=== PATIENT | female | born 1995 | race Caucasian/White ===

== ENCOUNTER 2022-12-25 20:55 | Inpatient (IN) | payer OTHER ==
[~2022-12-25 20:55] MED LIST: Bupivacaine HCl 0.5%/Epinephrine 1:200,000/PF 30 ml Vial ONE
[2022-12-25 21:16] VITALS: BMI 28.9
[2022-12-25] MEDS ORDERED: hydrALAZINE 20 MG/ML VIAL SLOW IVP PRN (21:43)
[2022-12-25] MEDS ORDERED: Acetaminophen 325 MG TAB PO PRN (21:47)
[2022-12-25 22:18] LABS: Creatinine, Urine Less than 20.00 mg/dL (47-110); Protein, Urine Random Quant Less than 10 mg/dL (1-14)
[2022-12-25 22:23] LABS: #Eosinphils 0.2 10x3/uL (0.0-0.5); #Monocytes 0.6 10x3/uL (0.0-1.1); #Neutrophils 6.3 10x3/uL (1.5-8.4); %Basophils 0.4 % (0.0-2.0); %Eosinophils 2.6 % (0.0-6.0); %Lymphocytes 21.4 % (18.0-47.0); %Monocytes 6.8 % (0.0-10.0); %Neutrophils 68.4 % (40.0-75.0); Hemoglobin 12.8 g/dL (12.0-15.5); Mean Corpuscular Hemoglobin 33.5 pg (27.0-33.0); Mean Corpuscular Volume 93.2 fl (81.6-98.3); Mean Platelet Volume 12.5 fl (7.4-10.4); Platelet Count 137 10x3/uL (150-450); RBC Distribution Width 12.6 % (11.5-14.5); Red Blood Cell (RBC) Count 3.82 10x6/uL (3.90-5.03); White Blood Cell (WBC) Count 9.3 10x3/uL (3.5-10.5)
[2022-12-25 22:35] LABS: ALT (SGPT) 12 U/L (8-55); AST (SGOT) 24 U/L (5-34); Albumin 3.8 g/dL (3.5-5.0); Alkaline Phosphatase 178 U/L (40-110); Anion Gap 14 mmol/L (10-20); BUN (Urea Nitrogen) 13 mg/dL (7.0-18.7); Bilirubin, Total 0.3 mg/dL (0.2-1.2); Calc. Creatinine Clearance 141 mL/min (70-130); Calcium 9.1 mg/dL (7.8-10.44); Carbon Dioxide 21 mmol/L (22-29); Chloride 108 mmol/L (98-107); Estimated GFR 123; Globulin 2.9 g/dL (2.4-3.5); Glucose 81 mg/dL (70-105); Protein, Total 6.7 g/dL (6.0-8.3); Sodium 139 mmol/L (136-145)
[2022-12-25] MEDS ORDERED: Lidocaine 1% (PF) 30 ML VIAL SC PRN (22:45)
[2022-12-25] MEDS ORDERED: NS w/ Oxytocin 30 units 500 ML IV SCH ×2 (22:45→23:00)
[2022-12-25] MEDS ORDERED: Promethazine HCl 25 MG/ML VIAL IM PRN (22:45)
[2022-12-25] MEDS ORDERED: Ondansetron PF 4 MG/2 ML Vial IVP PRN (22:45)
[2022-12-25 23:49] LABS: Syphilis Antibody Nonreactive (Nonreactive)
[2022-12-25 23:50] LABS: HBSAg Index 0.13 S/CO (0-0.99); Hep B Surf Ag - L&D Non-Reactive S/CO (NonReactive)
[2022-12-26] MEDS: Misoprostol 100 MCG TAB VAG SCH ×2 (00:57→08:27)
[2022-12-26] MEDS ORDERED: fentaNYL 50 mcg/mL 1 mL Vial SLOW IVP SCH (15:00)
[2022-12-26] MEDS ORDERED: fentaNYL 50 mcg/mL 1 mL Vial ONE ×2 (15:10→15:32)
[2022-12-26] MEDS ORDERED: Fentanyl 2 mcg/Bup 0.1% Cadd 100 ML ONE ×2 (15:11→23:29)
[2022-12-26] MEDS ORDERED: Magnesium Sulfate 20 gm/500 ml 20 GM/500 ML BAG ONE (15:43)
[2022-12-26] MEDS ORDERED: Acetaminophen 325 MG TAB PO PRN ×2 (16:23→17:10)
[2022-12-26] MEDS ORDERED: Naloxone HCl 0.4 mg/ml Vial IVP PRN ×4 (16:23→17:10)
[2022-12-26] MEDS ORDERED: Promethazine HCl 25 MG/ML VIAL IM PRN ×2 (16:23→17:10)
[2022-12-26] MEDS ORDERED: Ondansetron PF 4 MG/2 ML Vial IVP PRN ×2 (16:23→17:10)
[2022-12-26] MEDS ORDERED: Lactated Ringer's 500 ML IV PRN ×2 (16:23→17:10)
[2022-12-26] MEDS ORDERED: diphenhydrAMINE 50 MG/ML VIAL IVP PRN ×2 (16:23→17:10)
[2022-12-26] MEDS ORDERED: ePHEDrine Sulfate 50 MG/10 ML VIAL SLOW IVP PRN ×2 (16:23→17:10)
[2022-12-26] MEDS ORDERED: Moisturizing Cream (Eucerin) 113 GM JAR TOP PRN ×2 (16:23→17:10)
[2022-12-26] MEDS ORDERED: Communication Order-Pharmacy FS SCH ×2 (16:30→17:15)
[2022-12-26] MEDS ORDERED: hydrALAZINE 20 MG/ML VIAL SLOW IVP PRN (16:46)
[2022-12-26] MEDS ORDERED: Labetalol HCl 100 MG/20 ML VIAL SLOW IVP PRN ×2 (16:46)
[2022-12-26] MEDS ORDERED: Calcium Gluc 4.6 MEQ/10 ML (100 MG/ML) SLOW IVP PRN (16:46)
[2022-12-26] MEDS ORDERED: Magnesium Sulfate 20 gm/500 ml 20 GM/500 ML BAG IVPB SCH ×2 (17:00)
[2022-12-26] MEDS ORDERED: Magnesium Sulfate 20 gm/500 ml 4 GM/100 ML BAG IVPB ONE (17:15)
[2022-12-26] MEDS ORDERED: Fentanyl 2 mcg/Bupivacaine 0.1% Cassette 100 ML EPIDURAL SCH (17:15)
[2022-12-27] MEDS: Misoprostol 100 MCG TAB VAG SCH ×3 (00:11→06:18)
[2022-12-27] MEDS: Lactated Ringer's 1,000 ML IV SCH ×4 (00:11→19:46)
[2022-12-27] MEDS: valACYclovir 500 MG TAB PO SCH ×2 (00:12→10:52)
[2022-12-27] MEDS ORDERED: hydrALAZINE 20 MG/ML VIAL ONE (04:04)
[2022-12-27] MEDS ORDERED: Bisacodyl 10 MG SUPP PR PRN (04:18)
[2022-12-27] MEDS ORDERED: Lanolin Ointment 7 GM TUBE TOP PRN (04:18)
[2022-12-27] MEDS ORDERED: Benzocaine-Menthol 82.5 ML CAN TOP PRN (04:18)
[2022-12-27] MEDS ORDERED: Milk Of Magnesia 30 ML UDCUP PO PRN (04:18)
[2022-12-27] MEDS ORDERED: hydrALAZINE 20 MG/ML VIAL SLOW IVP PRN (04:18)
[2022-12-27] MEDS ORDERED: Misoprostol 200 MCG TAB VAG PRN (04:18)
[2022-12-27] MEDS ORDERED: Boostrix 0.5 ML (Tdap) VIAL (>/=7 yrs of age) IM ONE (04:18)
[2022-12-27] MEDS ORDERED: NS w/ Oxytocin 30 units 500 ML IV SCH (04:30)
[2022-12-27] MEDS: Ibuprofen 800 MG TAB PO SCH ×3 (06:16→21:24)
[2022-12-27] MEDS: Ferrous Sulfate 325 MG TAB PO SCH ×2 (08:04→19:46)
[2022-12-27] MEDS: Prenatal Vitamin 1 TAB PO SCH (10:48)
[2022-12-27] MEDS: Docusate 100 MG CAP PO SCH ×2 (10:48→21:24)
[2022-12-27] MEDS ORDERED: HYDROcodone/Acetaminophen 5/325 mg Tablet PO PRN (17:15)
[2022-12-27] MEDS ORDERED: Lorazepam 2 MG/ML VIAL SLOW IVP PRN (17:15)
[2022-12-28] MEDS: Lactated Ringer's 1,000 ML IV SCH ×4 (03:22→20:02)
[2022-12-28] MEDS: HYDROcodone/Acetaminophen 5/325 mg Tablet PO PRN (05:18)
[2022-12-28] MEDS: Ibuprofen 800 MG TAB PO SCH ×3 (05:18→21:34)
[2022-12-28] MEDS: Prenatal Vitamin 1 TAB PO SCH (08:38)
[2022-12-28] MEDS: valACYclovir 500 MG TAB PO SCH (08:39)
[2022-12-28] MEDS: Ferrous Sulfate 325 MG TAB PO SCH ×2 (08:39→16:53)
[2022-12-28] MEDS: Docusate 100 MG CAP PO SCH ×2 (08:39→21:34)
[2022-12-28] MEDS ORDERED: NIFEdipine XL 30 MG TAB PO SCH (21:15)
[2022-12-29] MEDS: Ibuprofen 800 MG TAB PO SCH ×3 (05:38→21:06)
[2022-12-29] MEDS: Docusate 100 MG CAP PO SCH ×2 (08:34→21:06)
[2022-12-29] MEDS: Prenatal Vitamin 1 TAB PO SCH (08:34)
[2022-12-29] MEDS: NIFEdipine XL 30 MG TAB PO SCH (08:34)
[2022-12-29] MEDS: Ferrous Sulfate 325 MG TAB PO SCH ×2 (08:35→13:34)
[2022-12-29] MEDS: valACYclovir 500 MG TAB PO SCH (08:56)
[2022-12-29] MEDS: Lactated Ringer's 1,000 ML IV SCH ×2 (13:34→21:04)
[2022-12-29] MEDS: HYDROcodone/Acetaminophen 5/325 mg Tablet PO PRN (14:24)
[2022-12-29] MEDS ORDERED: Labetalol HCl 100 MG TAB PO SCH ×2 (20:00)
[2022-12-29] MEDS ORDERED: NIFEdipine XL 30 MG TAB PO SCH (21:00)
[2022-12-30] MEDS: Lactated Ringer's 1,000 ML IV SCH ×2 (04:58→15:10)
[2022-12-30] MEDS: Ibuprofen 800 MG TAB PO SCH ×2 (05:03→13:37)
[2022-12-30 07:41] VITALS: TEMP 98
[2022-12-30] MEDS: Docusate 100 MG CAP PO SCH (08:39)
[2022-12-30] MEDS: NIFEdipine XL 30 MG TAB PO SCH (08:39)
[2022-12-30] MEDS: Prenatal Vitamin 1 TAB PO SCH (08:39)
[2022-12-30] MEDS: Ferrous Sulfate 325 MG TAB PO SCH ×2 (08:41→15:33)
[2022-12-30] MEDS ORDERED: Labetalol HCl 100 MG TAB PO SCH (09:00)
[2022-12-30] MEDS: valACYclovir 500 MG TAB PO SCH (09:00)
[2022-12-30 11:30] VITALS: BP 138/89
== END 2022-12-30 21:30 | disposition home or self-care (01) | DRG 806 ==
LOC: CSHLD/OP 20:55 → CSHLD 22:52 → CSHPP 12-28 05:45
PROVIDERS: ADMIT Obstetrics & Gynecology; ATTEND Obstetrics & Gynecology
PROC: 0U7C7ZZ Dilation of Cervix, Via Natural or Artificial Opening (ICD-10-PCS; 2022-12-26)
PROC: 10E0XZZ Delivery of Products of Conception, External Approach (ICD-10-PCS; principal; 2022-12-27)
DX: O13.4 Gestational [pregnancy-induced] hypertension without significant proteinuria, complicating childbirth (principal); O98.52 Other viral diseases complicating childbirth; Z37.0 Single live birth; O99.344 Other mental disorders complicating childbirth; F32.A Depression, unspecified; B00.9 Herpesviral infection, unspecified; Z3A.38 38 weeks gestation of pregnancy; Z79.899 Other long term (current) drug therapy; Z88.2 Allergy status to sulfonamides; O69.81X0 Labor and delivery complicated by cord around neck, without compression, not applicable or unspecified
CPT/HCPCS: 36415; 51702; 80053; 82570; 84156; 85025; 86780; 86850; 86900; 86901; 87340; 99285; J0360; J3010; J3475